=== PATIENT | male | born 1955 | race Caucasian/White ===

== ENCOUNTER 2025-06-29 06:28 | Day surgery (SDC) | payer OTHER ==
[2025-06-28 12:42] VITALS: BMI 30.9
[2025-06-29 10:00] VITALS: TEMP 98
[2025-06-29 10:10] VITALS: PULSE 56; RESP 16
[2025-06-29 10:26] VITALS: BP 144/48
== END 2025-06-29 10:45 | disposition home or self-care (01) ==
LOC: JASU-ENDO 06:28
PROVIDERS: ATTEND Internal Medicine Gastroenterology
PROC: 0DJD8ZZ Inspection of Lower Intestinal Tract, Via Natural or Artificial Opening Endoscopic (ICD-10-PCS; principal; 2025-06-29 09:15)
DX: Z12.11 Encounter for screening for malignant neoplasm of colon (principal); Z53.8 Procedure and treatment not carried out for other reasons
CPT/HCPCS: 82962